=== PATIENT | female | born 1975 | race Caucasian/White ===

== ENCOUNTER 2019-07-31 22:41 | Emergency (ER) | payer OTHER ==
[2019-07-31 22:53] VITALS: BP 129/93
--- NOTE | 2019-08-01 00:09 | XRay Report ---
EXAMINATION: Left elbow radiograph, 3 views, 07/31/2019 CLINICAL INFORMATION: Left elbow pain COMPARISON: None. FINDINGS: There is no evidence of acute fracture or dislocation of the left elbow. No significant bon y degenerative changes are noted. Signer Name: Ilana Del Valle MD Signed: 08/01/2019 12:05 AM Workstation Name: [id number]
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
[2019-08-01] MEDS ORDERED: ONDANSETRON 4 MG ODT TAB PO ONE (03:55)
[2019-08-01] MEDS ORDERED: HYDROcodone/ACETAMINOPHEN 5-325 MG TAB PO ONE (03:55)
[2019-08-01] MEDS ORDERED: IBUPROFEN 600 MG TAB PO ONE (03:55)
== END 2019-08-01 04:49 | disposition home or self-care (01) ==
LOC: ED 22:41
DX: S46.912A Strain of unspecified muscle, fascia and tendon at shoulder and upper arm level, left arm, initial encounter (principal); S53.402A Unspecified sprain of left elbow, initial encounter; D64.9 Anemia, unspecified; F17.200 Nicotine dependence, unspecified, uncomplicated; Z79.899 Other long term (current) drug therapy; V49.59XA Passenger injured in collision with other motor vehicles in traffic accident, initial encounter; Y93.89 Activity, other specified; Y92.410 Unspecified street and highway as the place of occurrence of the external cause; Y99.8 Other external cause status
CPT/HCPCS: Q0162

== ENCOUNTER 2021-02-09 06:43 | Emergency (ER) | payer SELFPAY ==
[2021-02-09 06:53] VITALS: BP 137/90
[2021-02-09 08:27] LABS: Bacteria,Urine 1+ /HPF (Negative); Bilirubin,Urine NEG (Negative); Blood,Urine NEG (Negative); Color,Urine Straw (Yellow); Mucus,Urine FEW /HPF; Protein,Urine <15 mg/dL mg/dL (Negative); Urobilinogen,Urine < 2.0 mg/dL (<2.0)
--- NOTE | 2021-02-09 08:30 | Emergency Department Report ---
ED Abdominal Pain HPI - General Chief Complaint: Back Pain/Injury Stated Complaint: LOWER BACK PAINS Time Seen by Provider: 02/09/21 07:16 Source: patient Mode of arrival: Ambulatory Limitations: No Limitations - History of Present Illness Initial Comments: Patient is a 45-year-old that comes to the emergency room complaining of low back pain and left lower quadrant pain. Her last menstrual cycle was 2 weeks ago. She denies any nausea vomiting. She denies any dysfunctional uterine bleeding. She denies any dysuria or vaginal discharge. Denies any fever or chills. MD Complaint: abdominal pain - Related Data Previous Rx's Medication Instructions Recorded Last Taken Type Ibuprofen [Motrin] 600 mg PO Q8H PRN #24 tablet 08/01/19 Unknown Rx tiZANidine [Zanaflex 4mg TAB] 4 mg PO Q8H PRN #15 tablet 08/01/19 Unknown Rx traMADoL [Ultram] 50 mg PO Q6HR PRN #12 tablet 08/01/19 Unknown Rx Allergies Allergy/AdvReac Type Severity Reaction Status Date / Time No Known Allergies Allergy Unverified 07/31/19 23:22 ED Review of Systems ROS: Stated complaint: LOWER BACK PAINS Other details as noted in HPI Comment: All other systems reviewed and negative ED Past Medical Hx - Past Medical History Previous Medical History?: Yes Additional medical history: Anemia - Surgical History Past Surgical History?: Yes Additional Surgical History: Left hip hardware - Family History Family history: no significant - Social History Smoking Status: Current Every Day Smoker Substance Use Type: None - Medications Home Medications: Home Medications Medication Instructions Recorded Confirmed Last Taken Type Ibuprofen [Motrin] 600 mg PO Q8H PRN #24 tablet 08/01/19 Unknown Rx tiZANidine [Zanaflex 4mg TAB] 4 mg PO Q8H PRN #15 tablet 08/01/19 Unknown Rx traMADoL [Ultram] 50 mg PO Q6HR PRN #12 tablet 08/01/19 Unknown Rx ED Physical Exam - General Limitations: No Limitations General appearance: alert, in no apparent distress - Head Head exam: Present: atraumatic, normocephalic - Eye Eye exam: Present: normal appearance - ENT ENT exam: Present: mucous membranes moist - Neck Neck exam: Present: normal inspection - Respiratory Respiratory exam: Present: normal lung sounds bilaterally. Absent: respiratory distress - Cardiovascular Cardiovascular Exam: Present: regular rate, normal rhythm. Absent: systolic murmur, diastolic murmur, rubs, gallop - GI/Abdominal GI/Abdominal exam: Present: soft, tenderness (llq), normal bowel sounds - Extremities Exam Extremities exam: Present: normal inspection - Back Exam Back exam: Present: normal inspection - Neurological Exam Neurological exam: Present: alert, oriented X3 - Psychiatric Psychiatric exam: Present: normal affect, normal mood - Skin Skin exam: Present: warm, dry, intact, normal color. Absent: rash ED Course Vital Signs 02/09/21 06:51 Temperature 98.4 F Pulse Rate 89 Respiratory 16 Rate Blood Pressure 137/90 O2 Sat by Pulse 97 Oximetry - Reevaluation(s) Reevaluation #1: 02/09/21 08:30 pt not in her room ED Medical Decision Making - Medical Decision Making 0800 labs ordered ua ordered - Differential Diagnosis ro uti/std/preg/ectopic/fibroid Critical care attestation.: If time is entered above; I have spent that time in minutes in the direct care of this critically ill patient, excluding procedure time. ED Disposition Clinical Impression: Abdominal pain Disposition: DC-07 LEFT AGAINST MED ADVICE Is pt being admited?: No Does the pt Need Aspirin: No Condition: Undetermined Instructions: Abdominal Pain (ED) Referrals: PRIMARY CARE, [Primary Care Provider] - 3-5 Days Time of Disposition: 08:36
== END 2021-02-09 08:35 | disposition left against medical advice (07) ==
LOC: ED 06:43
DX: R10.32 Left lower quadrant pain (principal); M54.5 Low back pain; F17.200 Nicotine dependence, unspecified, uncomplicated; Z86.2 Personal history of diseases of the blood and blood-forming organs and certain disorders involving the immune mechanism; Z79.899 Other long term (current) drug therapy
CPT/HCPCS: 81001; 99283

== ENCOUNTER 2021-02-26 20:47 | Emergency (ER) | payer SELFPAY ==
[2021-02-26 21:33] LABS: BUN/Creatinine Ratio 16; Blood Urea Nitrogen 14 mg/dL (7-17); Hemolysis Index 13
[2021-02-26 21:35] LABS: Basophils # (Auto) 0.1 K/mm3 (0.0-0.1); Basophils % (Auto) 0.5 % (0.0-1.8); Eosinophils # (Auto) 0.5 K/mm3 (0.0-0.4); Eosinophils % (Auto) 4.2 % (0.0-4.3); Hemoglobin 12.8 gm/dl (10.1-14.3); Lymphocytes # (Auto) 2.1 K/mm3 (1.2-5.4); Lymphocytes % (Auto) 16.7 % (13.4-35.0); Mean Corpuscular HGB Conc 34 % (30-34); Mean Corpuscular Volume 91 fl (79-97); Monocytes # (Auto) 0.8 K/mm3 (0.0-0.8); Monocytes % (Auto) 6.7 % (0.0-7.3); Platelet Count 227 K/mm3 (140-440); Red Blood Count 4.15 M/mm3 (3.65-5.03); Red Cell Distribution Width 15.7 % (13.2-15.2)
[2021-02-26] MEDS ORDERED: ONDANSETRON 4 MG/2 ML INJ IV ONE (21:49)
[2021-02-26] MEDS ORDERED: FAMOTIDINE 20 MG/2 ML INJ IV ONE (21:49)
[2021-02-26] MEDS ORDERED: SODIUM CHLORIDE 0.9% 1000 ML 1,000 ML IV ONE (21:49)
[2021-02-26] MEDS ORDERED: charcoal activated SOLUTION 25 GM/120 ML PO ONE (21:50)
[2021-02-26 21:57] LABS: INR 0.9 (0.87-1.13); Partial Thromboplastin Time 24.8 Sec. (24.2-36.6)
[2021-02-26 22:27] LABS: Bacteria,Urine 1+ /HPF (Negative); Bilirubin,Urine NEG (Negative); Blood,Urine NEG (Negative); Color,Urine Yellow (Yellow); Mucus,Urine FEW /HPF; Urobilinogen,Urine < 2.0 mg/dL (<2.0)
[2021-02-26 22:34] LABS: Amphetamine Screen,Urine PRESUMPTIVE POSITIVE; Benzodiazepines Screen,Urine PRESUMPTIVE NEGATIVE; Cannabinoid Screen,Urine PRESUMPTIVE NEGATIVE; Cocaine Screen,Urine PRESUMPTIVE NEGATIVE; Methadone Screen,Urine PRESUMPTIVE NEGATIVE; Opiate Screen,Urine PRESUMPTIVE NEGATIVE
--- NOTE | 2021-02-26 23:32 | Cat Scan Report ---
CT ABDOMEN AND PELVIS WITHOUT CONTRAST HISTORY: abd/back pain. COMPARISON: None. TECHNIQUE: CT images of the abdomen and pelvis were obtained without administration of intravenous co ntrast. All CT scans at this location are performed using CT dose reduction for ALARA by means of au tomated exposure control. FINDINGS: Lungs/bones: Lung bases are clear. There are degenerative changes in the spine and pelvis with no ac blackfeet osseous abnormality identified. Open reduction internal fixation change seen involving the left h emipelvis. Abdomen/pelvis: The liver is mildly enlarged with no focal mass identified. The gallbladder, spleen, pancreas, adrenals, and proximal GI tract appear unremarkable. There is punctate nonobstructive nephrolithiasis in the right kidney with largest stone measuring 1 m m in the midpole centrally. There is also a 1 mm stone near the distal right ureter although the uret er is quite difficult to follow on this exam and I cannot differentiate between a potential phlebolit h. Urinary bladder and reproductive organs are unremarkable with no pelvic free fluid identified. No acu te colonic abnormality. IMPRESSION: 1. Tiny stone measuring 1 mm near the right distal ureter could represent a tiny ureteral stone or ph lebolith. There is no hydronephrosis or significant inflammation. The ureter is difficult to visualiz e in this region. Otherwise there is punctate nonobstructive nephrolithiasis in the right kidney. Signer Name: Eric Nagy MD Signed: 02/26/2021 11:27 PM Workstation Name: [id number] [facility] [id number]
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
[2021-02-27 00:45] LABS: Alanine Aminotransferase 11 units/L (7-56)
[2021-02-27 01:11] VITALS: BP 125/83
--- NOTE | 2021-02-27 13:37 | Electrocardiograph Report ---
[facility] Test Date: 2021-02-26 Test Time: 21:02:37 Pat Name: TRUONG SLAUGHTER Department: Room: Gender: F [employer] Administrator: MUMTAZ : 1975 Requested By: AYANNA RODRIGUEZ Order Number: [id number] Reading MD: Melanie Cuellar Measurements Intervals [place] Rate: 112 P: 58 TN: 131 QRS: 63 QRSD: 87 T: 69 QT: 326 QTc: 445 Interpretive Statements Sinus tachycardia Otherwise normal ECG No previous ECG available for comparison Electronically Signed On 02-27-2021 13:37:18 EDT by Melanie Cuellar
== END 2021-02-27 02:21 | disposition home or self-care (01) ==
LOC: ED 20:47
DX: T39.311A Poisoning by propionic acid derivatives, accidental (unintentional), initial encounter (principal); N30.00 Acute cystitis without hematuria; F15.920 Other stimulant use, unspecified with intoxication, uncomplicated; F41.9 Anxiety disorder, unspecified; K29.00 Acute gastritis without bleeding; F17.200 Nicotine dependence, unspecified, uncomplicated; F12.90 Cannabis use, unspecified, uncomplicated; Z72.89 Other problems related to lifestyle; Z79.899 Other long term (current) drug therapy; Y92.89 Other specified places as the place of occurrence of the external cause
CPT/HCPCS: 36415; 74176; 80048; 80307; 81001; 84450; 84460; 84703; 85025; 85610; 85730; 93005; 96361; 96374; 96375; 99284; J2405; J7030; 80320; G0480